=== PATIENT | female | born 1925 ===

== ENCOUNTER 2017-02-03 18:51 | Inpatient (IN) | payer MEDICARE ==
[~2017-02-03] VITALS: Ht 157.5 cm; Wt 92.3 kg
[2017-02-03] MEDS ORDERED: ASPIRIN325 M3 PO (19:37)
[2017-02-03] MEDS ORDERED: BENADRYL25 M3 PO (19:44)
[2017-02-03] MEDS ORDERED: COREG3.125 M1 PO (19:45)
[2017-02-03 19:46] LABS: BASO % 0.2 % (0-2); EOS % 3.3 % (0-7); EOSINOPHIL ABSOLUTE COUNT 0.4 tho/cmm (0.0-0.7); HCT-HEMATOCRIT 40.8 % (34.0-49.0); HGB-HEMOGLOBIN 13.5 gm/dl (12.0-15.5); IMMATURE GRANULOCYTES ABSOLUTE 0.04 tho/cmm (0-0.03); IMMATURE GRANULOCYTES PERCENT 0.3 % (0-0.3); LYMPH % 6.2 % (20-45); LYMPH ABSOLUTE COUNT 0.8 tho/cmm (0.8-4.5); MCH (MEAN CORPUSCULAR HGB) 29.2 pg (28.0-32.0); MCHC MEAN CORPUSCULAR HGB CONC 33.1 % (32.0-36.0); MCV (MEAN CELL VOLUME) 88.3 fl (82.0-96.0); MONO % 2.4 % (0-12); MONOCYTE ABSOLUTE COUNT 0.3 tho/cmm (0.0-1.2); NEUTROPHIL ABSOLUTE COUNT 10.8 tho/cmm (1.6-8.0); NEUTROPHIL-AUTOMATED 10.8 tho/cmm (1.6-8.0); NEUTROPHILS % 87.6 % (40-80); PLATELET COUNT 157 tho/cmm (150-450); RED BLOOD COUNT 4.62 mil/cmm (4.00-5.20); RED CELL DISTRIBUTION WIDTH 13.9 % (12.4-16.4); WHITE BLOOD COUNT 12.3 tho/cmm (4.0-10.0)
[2017-02-03] MEDS ORDERED: IPRAT-ALBUT 0.5-3 ML INH (19:46)
[2017-02-03] MEDS ORDERED: MILK OF MAGNESIA PO (19:47)
[2017-02-03] MEDS ORDERED: LASIX40 M1 PO (19:47)
[2017-02-03] MEDS ORDERED: OXYBUTYNIN CHLOR5 M2 PO (19:48)
[2017-02-03] MEDS ORDERED: POTASSIUM CHLO20 ME3 PO (19:49)
[2017-02-03] MEDS ORDERED: SENNA PLUS TAB1 EAC1 PO (19:49)
[2017-02-03] MEDS ORDERED: ULTRAM50 M1 PO ×2 (19:50)
[2017-02-03] MEDS ORDERED: TYLENOL325 M2 PO (19:51)
[2017-02-03] MEDS ORDERED: VENTOLIN HFA18 G2 PO (19:52)
[2017-02-03] MEDS ORDERED: VITAMIN D32000 UNI3 PO (19:53)
[2017-02-03 20:03] LABS: ANION GAP 14 mmol/L (0-20); BLOOD UREA NITROGEN 32 mg/dl (6-24); CALCIUM 8.7 mg/dl (8.5-10.5); CARBON DIOXIDE-VENOUS 26 mmol/L (22-32); CHLORIDE 104 mmol/l (96-110); GLUCOSE 116 mg/dL (70-110); SODIUM 140 mmol/L (135-145); eGFR VALUE FOR BLACK 33 mL/Min
[2017-02-03 20:07] LABS: POTASSIUM 4.3 mmol/L (3.7-5.1)
[2017-02-03 21:09] LABS: URINE BILIRUBIN NEGATIVE (NEG); URINE BLOOD LARGE (NEG); URINE GLUCOSE (UA) NEGATIVE (NEG); URINE KETONE NEGATIVE (NEG); URINE LEUKOCYTE ESTERASE POSITIVE (NEG); URINE NITRITE POSITIVE (NEG); URINE PROTEIN MODERATE (NEG); URINE SPECIFIC GRAVITY 1.005 (1.003-1.030)
[2017-02-03 21:10] LABS: URINE APPEARANCE CLOUDY; URINE COLOR YELLOW
[2017-02-03 21:19] LABS: URINE BACTERIA 2+; URINE RBC 30-40 /[HPF] (0-5); URINE WBC 60-70 /[HPF] (0-5)
--- NOTE | 2017-02-04 03:51 | NUR ---
VIRTUAL CARE NOTE: IZZY RN ON UNIT CALLED DRAMATIC AGENT DUE TO PT. SHAKING RESP 48 AND O2 SAT DIFFICULT TO RESEARCH COMPLIANCE SPECIALIST, THIS RN CALLED TELM AND PT. VPACED RATE 90 VIA TELMETRY TECH. SEE DRAMATIC AGENT SHEET FOR FURTHER DETAILS.
[2017-02-04 04:25] LABS: INR 1.1 INR (0.9-1.1); PROTHROMBIN TIME 13.4 SECONDS (9.0-13.6)
[2017-02-04 04:28] LABS: BASO % 0.2 % (0-2); EOS % 0.2 % (0-7); HCT-HEMATOCRIT 38.1 % (34.0-49.0); HGB-HEMOGLOBIN 12.7 gm/dl (12.0-15.5); IMMATURE GRANULOCYTES ABSOLUTE 0.02 tho/cmm (0-0.03); IMMATURE GRANULOCYTES PERCENT 0.2 % (0-0.3); LYMPH % 7.8 % (20-45); LYMPH ABSOLUTE COUNT 0.8 tho/cmm (0.8-4.5); MCH (MEAN CORPUSCULAR HGB) 29.6 pg (28.0-32.0); MCHC MEAN CORPUSCULAR HGB CONC 33.3 % (32.0-36.0); MCV (MEAN CELL VOLUME) 88.8 fl (82.0-96.0); MEAN PLATELET VOLUME 11.2 cmc (9.4-12.4); MONO % 1.3 % (0-12); MONOCYTE ABSOLUTE COUNT 0.1 tho/cmm (0.0-1.2); NEUTROPHIL ABSOLUTE COUNT 9.3 tho/cmm (1.6-8.0); NEUTROPHIL-AUTOMATED 9.3 tho/cmm (1.6-8.0); NEUTROPHILS % 90.3 % (40-80); PLATELET COUNT 145 tho/cmm (150-450); RED BLOOD COUNT 4.29 mil/cmm (4.00-5.20); WHITE BLOOD COUNT 10.3 tho/cmm (4.0-10.0)
[2017-02-04 04:37] LABS: ABG CO2 ARTERIAL 21 mmol/L (21-27); ARTERIAL BLD GAS O2 SATURATION 97 % (95-98); ARTERIAL BLOOD GAS PCO2 30 mmHg (32-45); ARTERIAL PO2 83 mmHg (70-100); BICARBONATE 20 mmol/L (21-28); BLOOD GAS BASE EXCESS -3 mM/L (-/+3); PH 7.44 Units (7.35-7.45)
[2017-02-04 04:39] LABS: ANION GAP 13 mmol/L (0-20); BLOOD UREA NITROGEN 26 mg/dl (6-24); CALCIUM 8.1 mg/dl (8.5-10.5); CARBON DIOXIDE-VENOUS 23 mmol/L (22-32); CHLORIDE 106 mmol/l (96-110); CREATININE 1.44 mg/dl (0.50-1.10); GLUCOSE 111 mg/dL (70-110); POTASSIUM 4.1 mmol/L (3.7-5.1); SODIUM 138 mmol/L (135-145); eGFR VALUE FOR BLACK 37 mL/Min
--- NOTE | 2017-02-04 04:47 | NUR ---
virtual care note: fransisco son called did not respond to call, instructed to call this rn's number. tc in [facility] notified.
[2017-02-05 05:05] LABS: BASO % 0.2 % (0-2); EOS % 5.7 % (0-7); EOSINOPHIL ABSOLUTE COUNT 0.5 tho/cmm (0.0-0.7); HCT-HEMATOCRIT 31.6 % (34.0-49.0); HGB-HEMOGLOBIN 10.4 gm/dl (12.0-15.5); IMMATURE GRANULOCYTES ABSOLUTE 0.01 tho/cmm (0-0.03); IMMATURE GRANULOCYTES PERCENT 0.1 % (0-0.3); LYMPH % 12.3 % (20-45); MCH (MEAN CORPUSCULAR HGB) 28.8 pg (28.0-32.0); MCHC MEAN CORPUSCULAR HGB CONC 32.9 % (32.0-36.0); MCV (MEAN CELL VOLUME) 87.5 fl (82.0-96.0); MEAN PLATELET VOLUME 10.9 cmc (9.4-12.4); MONO % 12.3 % (0-12); NEUTROPHIL ABSOLUTE COUNT 5.6 tho/cmm (1.6-8.0); NEUTROPHIL-AUTOMATED 5.6 tho/cmm (1.6-8.0); NEUTROPHILS % 69.4 % (40-80); PLATELET COUNT 115 tho/cmm (150-450); RED BLOOD COUNT 3.61 mil/cmm (4.00-5.20)
[2017-02-05 05:18] LABS: ANION GAP 12 mmol/L (0-20); BLOOD UREA NITROGEN 24 mg/dl (6-24); CALCIUM 7.3 mg/dl (8.5-10.5); CARBON DIOXIDE-VENOUS 21 mmol/L (22-32); CHLORIDE 108 mmol/l (96-110); GLUCOSE 84 mg/dL (70-110); POTASSIUM 3.3 mmol/L (3.7-5.1); SODIUM 138 mmol/L (135-145); eGFR VALUE FOR BLACK 46 mL/Min
[2017-02-06 05:13] LABS: HGB-HEMOGLOBIN 10.9 gm/dl (12.0-15.5); PLATELET COUNT 138 tho/cmm (150-450)
[2017-02-06 05:26] LABS: ANION GAP 14 mmol/L (0-20); BLOOD UREA NITROGEN 22 mg/dl (6-24); CALCIUM 7.7 mg/dl (8.5-10.5); CARBON DIOXIDE-VENOUS 19 mmol/L (22-32); CHLORIDE 111 mmol/l (96-110); CREATININE 1.19 mg/dl (0.50-1.10); GLUCOSE 123 mg/dL (70-110); POTASSIUM 3.5 mmol/L (3.7-5.1); SODIUM 140 mmol/L (135-145); eGFR VALUE FOR BLACK 47 mL/Min
[2017-02-06] MEDS ORDERED: KEFLEX500 M4 PO (12:17)
[2017-02-06 14:20] LABS: ABG CO2 ARTERIAL 18 mmol/L (21-27); ARTERIAL BLD GAS O2 SATURATION 93 % (95-98); ARTERIAL BLOOD GAS PCO2 28 mmHg (32-45); ARTERIAL PO2 63 mmHg (70-100); BICARBONATE 17 mmol/L (21-28); BLOOD GAS BASE EXCESS -6 mM/L (-/+3)
[2017-02-07 14:04] LABS: ABG CO2 ARTERIAL 20 mmol/L (21-27); ARTERIAL BLD GAS O2 SATURATION 93 % (95-98); ARTERIAL BLOOD GAS PCO2 29 mmHg (32-45); ARTERIAL PO2 64 mmHg (70-100); BICARBONATE 19 mmol/L (21-28); BLOOD GAS BASE EXCESS -3 mM/L (-/+3); PH 7.44 Units (7.35-7.45)
[2017-02-07 14:17] LABS: ANION GAP 15 mmol/L (0-20); BLOOD UREA NITROGEN 22 mg/dl (6-24); CALCIUM 8.5 mg/dl (8.5-10.5); CARBON DIOXIDE-VENOUS 17 mmol/L (22-32); CHLORIDE 111 mmol/l (96-110); CREATININE 1.33 mg/dl (0.50-1.10); GLUCOSE 146 mg/dL (70-110); POTASSIUM 4.2 mmol/L (3.7-5.1); SODIUM 139 mmol/L (135-145); eGFR VALUE FOR BLACK 41 mL/Min
[2017-02-07 18:21] LABS: INR 1.2 INR (0.9-1.1); PROTHROMBIN TIME 14.5 SECONDS (9.0-13.6)
[2017-02-07 18:56] LABS: BASO % 1.2 % (0-2); BASO ABSOLUTE COUNT 0.1 tho/cmm (0.0-0.2); EOS % 8.6 % (0-7); EOSINOPHIL ABSOLUTE COUNT 0.6 tho/cmm (0.0-0.7); HCT-HEMATOCRIT 31.6 % (34.0-49.0); HGB-HEMOGLOBIN 11.1 gm/dl (12.0-15.5); IMMATURE GRANULOCYTES ABSOLUTE 0.11 tho/cmm (0-0.03); IMMATURE GRANULOCYTES PERCENT 1.7 % (0-0.3); LYMPH % 19.9 % (20-45); LYMPH ABSOLUTE COUNT 1.3 tho/cmm (0.8-4.5); MCH (MEAN CORPUSCULAR HGB) 29.4 pg (28.0-32.0); MCV (MEAN CELL VOLUME) 83.6 fl (82.0-96.0); MONO % 11.8 % (0-12); MONOCYTE ABSOLUTE COUNT 0.8 tho/cmm (0.0-1.2); NEUTROPHIL ABSOLUTE COUNT 3.7 tho/cmm (1.6-8.0); NEUTROPHIL-AUTOMATED 3.7 tho/cmm (1.6-8.0); NEUTROPHILS % 56.8 % (40-80); RED BLOOD COUNT 3.78 mil/cmm (4.00-5.20); RED CELL DISTRIBUTION WIDTH 13.8 % (12.4-16.4); WHITE BLOOD COUNT 6.5 tho/cmm (4.0-10.0)
[2017-02-07 18:57] LABS: MCHC MEAN CORPUSCULAR HGB CONC 35.1 % (32.0-36.0)
[2017-02-07 19:21] LABS: PLATELET COUNT 125 tho/cmm (150-450)
[2017-02-08 03:28] LABS: PLATELET COUNT 158 tho/cmm (150-450)
[2017-02-08 03:42] LABS: ANION GAP 12 mmol/L (0-20); BLOOD UREA NITROGEN 21 mg/dl (6-24); CALCIUM 8.4 mg/dl (8.5-10.5); CARBON DIOXIDE-VENOUS 24 mmol/L (22-32); CHLORIDE 108 mmol/l (96-110); CREATININE 1.21 mg/dl (0.50-1.10); GLUCOSE 111 mg/dL (70-110); SODIUM 141 mmol/L (135-145); eGFR VALUE FOR BLACK 46 mL/Min
[2017-02-08 03:49] LABS: POTASSIUM 3.1 mmol/L (3.7-5.1)
[2017-02-08 05:08] LABS: ARTERIAL BLD GAS O2 SATURATION 98 % (95-98); BLOOD GAS BASE EXCESS 0 mM/L (-/+3); PH 7.42 Units (7.35-7.45)
[2017-02-08 05:09] LABS: ABG CO2 ARTERIAL 25 mmol/L (21-27); ARTERIAL BLOOD GAS PCO2 37 mmHg (32-45); ARTERIAL PO2 90 mmHg (70-100); BICARBONATE 24 mmol/L (21-28)
[2017-02-09 05:56] LABS: BASO % 0.2 % (0-2); EOSINOPHIL ABSOLUTE COUNT 0.9 tho/cmm (0.0-0.7); HGB-HEMOGLOBIN 10.2 gm/dl (12.0-15.5); IMMATURE GRANULOCYTES ABSOLUTE 0.01 tho/cmm (0-0.03); IMMATURE GRANULOCYTES PERCENT 0.1 % (0-0.3); LYMPH % 17.3 % (20-45); LYMPH ABSOLUTE COUNT 1.5 tho/cmm (0.8-4.5); MCV (MEAN CELL VOLUME) 85.2 fl (82.0-96.0); MEAN PLATELET VOLUME 10.7 cmc (9.4-12.4); MONO % 6.8 % (0-12); MONOCYTE ABSOLUTE COUNT 0.6 tho/cmm (0.0-1.2); NEUTROPHIL ABSOLUTE COUNT 5.4 tho/cmm (1.6-8.0); NEUTROPHIL-AUTOMATED 5.4 tho/cmm (1.6-8.0); NEUTROPHILS % 64.6 % (40-80); PLATELET COUNT 196 tho/cmm (150-450); RED BLOOD COUNT 3.52 mil/cmm (4.00-5.20); RED CELL DISTRIBUTION WIDTH 14.4 % (12.4-16.4); WHITE BLOOD COUNT 8.4 tho/cmm (4.0-10.0)
[2017-02-09 06:14] LABS: ANION GAP 10 mmol/L (0-20); BLOOD UREA NITROGEN 28 mg/dl (6-24); CALCIUM 8.2 mg/dl (8.5-10.5); CARBON DIOXIDE-VENOUS 26 mmol/L (22-32); CHLORIDE 106 mmol/l (96-110); CREATININE 1.48 mg/dl (0.50-1.10); GLUCOSE 105 mg/dL (70-110); POTASSIUM 3.3 mmol/L (3.7-5.1); SODIUM 139 mmol/L (135-145); eGFR VALUE FOR BLACK 36 mL/Min
[2017-02-10 06:20] LABS: ANION GAP 14 mmol/L (0-20); BLOOD UREA NITROGEN 34 mg/dl (6-24); CARBON DIOXIDE-VENOUS 27 mmol/L (22-32); CHLORIDE 107 mmol/l (96-110); CREATININE 1.54 mg/dl (0.50-1.10); GLUCOSE 149 mg/dL (70-110); POTASSIUM 4.1 mmol/L (3.7-5.1); SODIUM 144 mmol/L (135-145); eGFR VALUE FOR BLACK 34 mL/Min
[2017-02-10 07:37] LABS: PROCALCITONIN 1.08 ng/ml (0.05-0.09)
[2017-02-11 06:04] LABS: HGB-HEMOGLOBIN 9.6 gm/dl (12.0-15.5); PLATELET COUNT 252 tho/cmm (150-450)
[2017-02-11 06:13] LABS: ANION GAP 11 mmol/L (0-20); BLOOD UREA NITROGEN 41 mg/dl (6-24); CALCIUM 7.9 mg/dl (8.5-10.5); CARBON DIOXIDE-VENOUS 26 mmol/L (22-32); CHLORIDE 105 mmol/l (96-110); CREATININE 1.59 mg/dl (0.50-1.10); GLUCOSE 121 mg/dL (70-110); POTASSIUM 4.3 mmol/L (3.7-5.1); SODIUM 138 mmol/L (135-145); eGFR VALUE FOR BLACK 33 mL/Min
[2017-02-11] MEDS ORDERED: KEFLEX500 M4 PO (15:04)
[2017-02-11] MEDS ORDERED: PREDNISONE10 M1 PO (15:05)
[2017-02-11] MEDS ORDERED: POTASSIUM CHLO10 ME1 PO (15:05)
[2017-02-11] MEDS ORDERED: BUDESONIDE INH (15:07)
[2017-02-11] MEDS ORDERED: SEREVENT DISKU50 MCG INH (15:08)
== END 2017-02-11 16:25 | DRG 871 ==
LOC: EDBD 18:51 → EDMED 18:51 → EMR2 23:30 → 5WE 23:30 → CCU 23:30 → 5WD 02-04 00:51 → CCU 02-04 05:00 → PCUB 02-04 16:15 → 5WE 02-05 18:15
PROVIDERS: Emergency Medicine; Family Medicine; Hospitalist; Internal Medicine Cardiovascular Disease; Registered Nurse; ADMIT Internal Medicine
DX: A41.9 Sepsis, unspecified organism (principal); J96.01 Acute respiratory failure with hypoxia; N17.9 Acute kidney failure, unspecified; I50.33 Acute on chronic diastolic (congestive) heart failure; I27.2 Other secondary pulmonary hypertension; F03.90 Unspecified dementia, unspecified severity, without behavioral disturbance, psychotic disturbance, mood disturbance, and anxiety; I48.91 Unspecified atrial fibrillation; N39.0 Urinary tract infection, site not specified; E86.0 Dehydration; D63.1 Anemia in chronic kidney disease; S80.11XA Contusion of right lower leg, initial encounter; I07.1 Rheumatic tricuspid insufficiency; I13.0 Hypertensive heart and chronic kidney disease with heart failure and stage 1 through stage 4 chronic kidney disease, or unspecified chronic kidney disease; R65.20 Severe sepsis without septic shock; J44.9 Chronic obstructive pulmonary disease, unspecified; Z95.0 Presence of cardiac pacemaker; N32.81 Overactive bladder; Z88.0 Allergy status to penicillin; Z79.82 Long term (current) use of aspirin; M19.90 Unspecified osteoarthritis, unspecified site; Z66 Do not resuscitate; N18.3 Chronic kidney disease, stage 3 (moderate); R07.9 Chest pain, unspecified; M25.511 Pain in right shoulder; B96.20 Unspecified Escherichia coli [E. coli] as the cause of diseases classified elsewhere; E87.6 Hypokalemia; R32 Unspecified urinary incontinence
CPT/HCPCS: A9540; A9558; C8929; G8978-GP-CL; G8979-GP-CK; G8980-GP-CL; J0696; J1644; J1650; J1940; J1956; J2405; J3370; J7030; J7512; P9612